=== PATIENT | male | born 2000 | race American Indian/Alaskan Native ===

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

== ENCOUNTER 2021-01-16 23:46 | Emergency (ER) | payer MEDICAID ==
[2021-01-16] MEDS ORDERED: SODIUM CHLORIDE 0.9% 1000 ML 1,000 ML IV ONE (23:53)
[2021-01-16] MEDS ORDERED: HYDROmorphone 1 MG/1 ML INJ IV ONE (23:54)
[2021-01-16] MEDS ORDERED: ONDANSETRON 4 MG/2 ML INJ IV ONE (23:54)
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
[2021-01-17 00:05] LABS: Hematocrit 42.3 % (35.5-45.6); Hemoglobin 14.3 gm/dl (11.8-15.2); Mean Corpuscular HGB Conc 34 % (32-34); Mean Corpuscular Volume 90 fl (84-94); Platelet Count 221 K/mm3 (140-440); Red Blood Count 4.71 M/mm3 (3.65-5.03); Red Cell Distribution Width 13.6 % (13.2-15.2)
[2021-01-17 00:22] LABS: Alanine Aminotransferase 12 units/L (7-56); Albumin 4.6 g/dL (3.9-5); BUN/Creatinine Ratio 8; Blood Urea Nitrogen 8 mg/dL (9-20); Calcium 9.3 mg/dL (8.4-10.2); Hemolysis Index 9; INR 1.04 (0.87-1.13)
[2021-01-17 00:23] LABS: Partial Thromboplastin Time 22.7 Sec. (24.2-36.6)
[2021-01-17] MEDS ORDERED: POTASSIUM CHLORIDE ER 20 MEQ TAB PO ONE (00:44)
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
[2021-01-17] MEDS ORDERED: ceFAZolin 1 GM VIAL IV ONE (01:27)
[2021-01-17] MEDS ORDERED: SODIUM CHLORIDE 0.9% IRR 500 ML BOTTLE IR ONE (01:34)
[2021-01-17] MEDS ORDERED: NEOMY 3.5 MG/BACIT 400 UNITS/POLY B 5000 UNITS/GM OINT PACKET TP ONE (01:37)
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
[2021-01-17] MEDS ORDERED: KETOROLAC 30 MG/1 ML INJ IV ONE (02:00)
[2021-01-17] MEDS ORDERED: ceFAZolin/NS 1 GM/50 ML 1 GM/50 ML BAG IV ONE (02:00)
[2021-01-17 02:49] LABS: Anisocytosis 1+; Platelet Estimate Consistent w Auto; Total Cells Counted 100
[2021-01-17 03:41] VITALS: BP 115/70
--- NOTE | 2021-01-17 14:33 | Electrocardiograph Report ---
Test Date: 2021-01-17 Test Time: 02:10:10 Pat Name: JUHI BAIRD Department: Room: Gender: M Technician Assistant: JENNY : 2000 Requested By: DC CHAPARRO Order Number: [id number] Reading MD: Daniel Rehman Measurements Intervals [place] Rate: 96 P: 97 SC: 163 QRS: 112 QRSD: 88 T: 61 QT: 331 QTc: 419 Interpretive Statements SINUS ARRHYTHMIA Right axis deviation No previous ECG available for comparison Electronically Signed On 01-17-2021 14:33:20 EDT by Daniel Rehman
--- NOTE | 2021-01-18 11:48 | Electrocardiograph Report ---
[facility] Test Date: 2021-01-17 Test Time: 02:36:05 Pat Name: JUHI BAIRD Department: Room: Gender: M [employer] Operator: JENNY : 2000 Requested By: DC CHAPARRO Order Number: [id number] Reading MD: Daniel Rehman Measurements Intervals [place] Rate: 88 P: 69 W[place]: 161 QRS: 100 QRSD: 89 T: 52 QT: 322 QTc: 389 Interpretive Statements Sinus rhythm Right axis deviation Consider left ventricular hypertrophy Compared to ECG 01/17/2021 02:10:10 No significant change Electronically Signed On 01-18-2021 11:48:36 EDT by Daniel Rehman
== END 2021-01-17 04:05 | disposition home or self-care (01) ==
LOC: ED 23:46
DX: S71.031A Puncture wound without foreign body, right hip, initial encounter (principal); E87.6 Hypokalemia; W33.01XA Accidental discharge of shotgun, initial encounter; Y93.01 Activity, walking, marching and hiking; Y92.488 Other paved roadways as the place of occurrence of the external cause; Y99.8 Other external cause status
CPT/HCPCS: 36415; 71045; 72132; 72170; 74177; 80053; 85007; 85025; 85610; 85730; 86850; 86900; 86901; 93005; 96361; 96365; 96375; 99291; A6250; J0690; J1170; J1885; J2405; J7030; Q9967